=== PATIENT | male | born 1995 | race Caucasian/White ===

== ENCOUNTER 2016-12-28 21:59 | Emergency (ER) | payer SELFPAY ==
[~2016-12-28] VITALS: Ht 177.8 cm; Wt 72.0 kg
[2016-12-28 22:13] VITALS: BP 127/82
== END 2016-12-28 23:15 | disposition left against medical advice (07) ==
LOC: ER 22:12
DX: F10.10 Alcohol abuse, uncomplicated (principal); Z53.21 Procedure and treatment not carried out due to patient leaving prior to being seen by health care provider